=== PATIENT | female | born 1990 | race Caucasian/White ===

== ENCOUNTER 2021-11-11 13:44 | Emergency (ER) | payer OTHER ==
[2021-11-11 14:59] LABS: HEMOGLOBIN 15.2 gm/dl (12.3-15.3); RED BLOOD COUNT 5.02 M/UL (4.00-5.10); WHITE BLOOD COUNT 15.6 K/UL (4.5-11.0)
[2021-11-11 15:17] LABS: BUN/CREATININE RATIO 19 (0-10)
[2021-11-11] MEDS ORDERED: MEDROL4 MG PO (16:07)
== END 2021-11-11 16:21 | disposition home or self-care (01) ==
LOC: ER1 13:44
PROVIDERS: Preventive Medicine Occupational Medicine
DX: L23.7 Allergic contact dermatitis due to plants, except food (principal)
CPT/HCPCS: 80048; 85025; 86140; 93005; 96374; 99285; J2930